=== PATIENT | female | born 1960 ===

== ENCOUNTER 2018-01-22 09:59 | Day surgery (SDC) | payer OTHER ==
[2018-01-22 10:33] VITALS: BMI 39.4
[2018-01-22] MEDS ORDERED: Lactated Ringer's 1,000 ML IV ONE (13:10)
[2018-01-22] MEDS ORDERED: Propofol 10 mg/ml Inj (20 ML) ONE (13:16)
[2018-01-22] MEDS ORDERED: Midazolam 2 MG/2 ML VIAL ONE (13:16)
[2018-01-22] MEDS ORDERED: Belladonna-Phenobarbital PO STA (13:17)
--- NOTE | 2018-01-22 13:17 | CP.SDSHP ---
Same Day Surgery H & P - History Proposed Procedure: COLONSCOPY Pre-Op Diagnosis: SEE NOTES - Previous Medical/Surgical History Cardiac: Hypertension Neuro: Other - Allergies Allergies: Allergies No Known Allergies Allergy (Verified 01/22/18 10:47) - Physical Exam General Appearance: N Vital Signs: Vital Signs 01/22/18 10:47 Temperature 98.4 F Pulse Rate 64 Respiratory 19 Rate Blood Pressure 120/67 O2 Sat by Pulse 100 Oximetry Mental Status: Alert & Oriented x3 Neuro: Other Heart: WNL Lungs: WNL GI: WNL - {Optional Preform as Required} Breast: WNL Abdomen: Other Rectal: Other Integument: WNL : WNL Ortho: WNL ENT: WNL - Impression Pt. Evaluated Today:Candidate for Anesthesia & Procedure: Yes - Date & Time Time: 13:17 Short Stay Discharge - Short Stay Discharge Admitting Diagnosis/Reason for Visit: RECTAL BLEEDING Disposition: HOME/ ROUTINE
[2018-01-22 13:49] VITALS: TEMP 98
[2018-01-22 14:20] VITALS: RESP 19; O2SAT 100
[2018-01-22 14:28] VITALS: BP 126/72; PULSE 68
== END 2018-01-22 14:28 | disposition home or self-care (01) ==
LOC: C.ENDO 09:59
PROVIDERS: ATTEND Specialist
DX: K57.30 Diverticulosis of large intestine without perforation or abscess without bleeding (principal); K64.8 Other hemorrhoids; K58.9 Irritable bowel syndrome, unspecified; I10 Essential (primary) hypertension
CPT/HCPCS: 45380; 84703; 88305; J2250; J2704; J7120

== ENCOUNTER 2018-01-29 06:04 | Day surgery (SDC) | payer OTHER ==
[2018-01-25 12:10] VITALS: BMI 39.4
[2018-01-29] MEDS ORDERED: Lactated Ringer's 1,000 ML IV ONE (08:00)
[2018-01-29] MEDS ORDERED: Propofol 10 mg/ml Inj (20 ML) ONE (08:03)
--- NOTE | 2018-01-29 08:05 | CP.SDSHP ---
Same Day Surgery H & P - History Proposed Procedure: EGD Pre-Op Diagnosis: SEE NOTES - Previous Medical/Surgical History Cardiac: Hypertension Neuro: Other Misc: Other Pain: 4.Moderate Pain Previous Surgical History: G.B. SX. - Allergies Allergies: Allergies No Known Allergies Allergy (Verified 01/22/18 10:47) - Current Medications Current Medications: N - Physical Exam General Appearance: N Vital Signs: Vital Signs 01/29/18 06:38 Temperature 97.9 F Pulse Rate 79 Respiratory 19 Rate Blood Pressure 125/73 O2 Sat by Pulse 97 Oximetry Mental Status: Alert & Oriented x3 Neuro: WNL Heart: Other Lungs: WNL GI: WNL - {Optional Preform as Required} Breast: WNL Abdomen: Other Rectal: Other Integument: WNL : WNL Ortho: WNL ENT: WNL - Impression Pt. Evaluated Today:Candidate for Anesthesia & Procedure: Yes - Date & Time Time: 08:05 Short Stay Discharge - Short Stay Discharge Admitting Diagnosis/Reason for Visit: DYSPEPSIA Disposition: HOME/ ROUTINE
[2018-01-29] MEDS ORDERED: Belladonna-Phenobarbital PO ONE (08:30)
[2018-01-29 08:37] VITALS: TEMP 98
[2018-01-29 08:49] VITALS: O2SAT 99
[2018-01-29 09:41] VITALS: BP 121/77; PULSE 77; RESP 13
== END 2018-01-29 09:30 | disposition home or self-care (01) ==
LOC: C.ENDO 06:04
PROVIDERS: ATTEND Specialist
DX: K31.7 Polyp of stomach and duodenum (principal); K30 Functional dyspepsia; I10 Essential (primary) hypertension
CPT/HCPCS: 43239; 84703; 88305; J2704; J7120